=== PATIENT | male | born 1990 | race Caucasian/White ===

== ENCOUNTER 2021-09-21 03:01 | Emergency (ER) | payer BC ==
[~2021-09-21] VITALS: Ht 172.7 cm; Wt 93.0 kg
[2021-09-21] MEDS ORDERED: OLAN10 PO (03:28)
== END 2021-09-21 03:35 | disposition home or self-care (01) ==
LOC: ER 03:01
DX: F43.10 Post-traumatic stress disorder, unspecified (principal); Z76.0 Encounter for issue of repeat prescription; F17.210 Nicotine dependence, cigarettes, uncomplicated
CPT/HCPCS: 99281; A9270